=== PATIENT | male | born 1970 | race Caucasian/White ===

== ENCOUNTER 2024-12-25 15:54 | Emergency (ER) | payer OTHER, SELFPAY ==
--- NOTE | ~2024-12-25 | XR_ITS ---
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 COMPARISON: No comparisons available. Findings: Nondisplaced radial head fracture with intra-articular extension. No significant degenerative changes. Soft tissues unremarkable. Impression: Radial head fracture Reviewed, dictated and finalized at location . RNMENT RELATIONS ANALYST Impression: Radial head fracture
[2024-12-25 16:03] VITALS: BP 136/82; PULSE 74; RESP 18; TEMP 36.6; O2SAT 98
--- NOTE | 2024-12-25 16:17 | ED.UPPEXIN ---
HPI - Extremity Injury (Upper) General Chief Complaint: Extremity Injury, Upper Stated Complaint: fall Time Seen by Provider: 12/25/24 16:11 Source: patient and RN notes reviewed Mode of arrival: ambulatory Limitations: no limitations History of Present Illness HPI narrative: 54-year-old male patient presents today complaining of a left elbow injury. Approximately 2 hours prior to arrival, patient fell off a ladder approximately 6 ft height on his left elbow. He denies any additional injury or pain to include shoulder pain, head injury, neck injury, lower extremity injuries chest injury, loss of consciousness. His elbow hit a patio paper as he fell. He has some intermittent tingling in the 5th finger. At rest, he rates his pain 2/10, which increases to 8/10 with movement. No OTC treatment prior to arrival. Patient is not up-to-date on his tetanus vaccine. He is right-hand dominant. Related Data Home Medications ?Medication ?Instructions ?Recorded ?Confirmed ?Last Taken ?Type ascorbate calcium (vitamin C) 500 500 mg PO DAILY 05/24/24 05/24/24 Unknown History mg tablet cholecalciferol (vitamin D3) 10 10 mcg PO DAILY 05/24/24 05/24/24 Unknown History mcg (400 unit) capsule multivitamin 1 tablet PO DAILY 05/24/24 05/24/24 Unknown History Allergies Allergy/AdvReac Type Severity Reaction Status Date / Time naproxen (From Aleve) Allergy Unknown Hives Verified 12/25/24 16:13 fluticasone (From Flonase) AdvReac Mild Hyperactive Verified 12/25/24 16:13 PMFSH Past Medical History Medical History Hyperglycemia Vitamin D deficiency Dyslipidemia Hypothyroidism Surgical History Surgical History No pertinent past surgical history Social History Social History Social History: 05/17/24 very confident with medical forms Smoking packs per day: 0.75 Smoking cigarettes per day: 15.0 Years smoked: 20 Smoking pack-years: 15.00 Alcohol intake: never Substance use: never Do You Feel Safe in your Home?: Yes Lack of Transportation: No Lack of Food: Never True Current Housing: I Have Housing Concerned About Future Housing: No Difficulty Paying Gas/Electric Bills: No Difficulty Paying for Meds: No Currently Unemployed: No Education: Trade/Vocational Certificate Difficulty w/ Childcare or Family Care: No Living arrangements: with family Occupation/Education: occupation Gender identity (if verbalized by the patient): Male Sexual Orientation (if Verbalized by the Patient): Straight or Heterosexual Comments At time of signature, I have reviewed and agree with nursing past medical, surgical, social and family history unless otherwise noted. Please see nursing chart for further information. There is no relevant family history pertinent to the presenting complaint Exam Narrative: GENERAL: Well-appearing, well-nourished, and in no acute distress. HEAD: Normocephalic, atraumatic. EYES: EOMI. No redness or drainage. Conjunctivae normal. ENT: Mucous membranes pink and moist. NECK: Normal AROM. CHEST: No respiratory distress. Clear to auscultation. HEART: Regular rate and rhythm. No murmur appreciated. Normal peripheral pulses. ABDOMEN: Soft, nontender, nondistended, normal active bowel sounds. MUSCULOSKELETAL: No bony tenderness. EXTREMITIES: Left arm: Shoulder nontender with full AROM without pain. Elbow: Moderately swollen olecranon bursa with small superficial abrasion. Tenderness of the medial epicondyle and antecubital fossa. Pain with active flexion, pronation and supination. Pain extends a bit distally to the forearm. No obvious edema or ecchymosis of the forearm. Wrist NTTP without edema or ecchymosis. Flexion and extension of the wrist elicits no pain. Distal sensation intact in all 5 fingers. Capillary refill normal. Radial pulse normal. SKIN: Warm, dry, no rash. Capillary refill normal. Normal skin turgor. NEURO: No focal deficits. Alert and oriented x3. Gait steady. PSYCH: Normal affect. No signs of depression or anxiety. Course Course Level of Care: Express Care Visit Vital Signs Vital signs: Vital Signs Temperature 97.9 F 12/25/24 16:03 Pulse Rate 74 12/25/24 16:03 Respiratory Rate 18 12/25/24 16:03 Blood Pressure 136/82 12/25/24 16:03 Pulse Oximetry 98 12/25/24 16:03 Oxygen Delivery Room Air 12/25/24 16:03 Temperature 97.9 F 12/25/24 16:03 Pulse Rate 74 12/25/24 16:03 Respiratory Rate 18 12/25/24 16:03 Blood Pressure 136/82 12/25/24 16:03 Pulse Oximetry 98 12/25/24 16:03 Oxygen Delivery Room Air 12/25/24 16:03 Reviewed Procedures Orthopedic Splinting/Casting Injury #1: Splinting/Casting Date: 12/25/24 Splinting/Casting Time: 17:05 Side: left OCL: long arm Pre-Procedure Neuro Vascular Exam: normal Post-Procedure Neuro Vascular Exam: normal Other Orthopedic Equipment: other (Sling) Additional Comments: Placed by tech and RN. MDM - Extremity Injury (Upper) MDM Narrative Medical decision making narrative: 54-year-old male patient presents today complaining of a left elbow injury. Approximately 2 hours prior to arrival, patient fell off a ladder approximately 6 ft height on his left elbow. He denies any additional injury or pain to include shoulder pain, head injury, neck injury, lower extremity injuries chest injury, loss of consciousness. His elbow hit a patio paper as he fell. He has some intermittent tingling in the 5th finger. At rest, he rates his pain 2/10, which increases to 8/10 with movement. No OTC treatment prior to arrival. Patient is not up-to-date on his tetanus vaccine. He is right-hand dominant. Upon exam, Left arm: Shoulder nontender with full AROM without pain. Elbow: Moderately swollen olecranon bursa with small superficial abrasion. Tenderness of the medial epicondyle and antecubital fossa. Pain with active flexion, pronation and supination. Pain extends a bit distally to the forearm. No obvious edema or ecchymosis of the forearm. Wrist NTTP without edema or ecchymosis. Flexion and extension of the wrist elicits no pain. Distal sensation intact in all 5 fingers. Capillary refill normal. Radial pulse normal. X-ray shows nondisplaced radial head fracture. Long-arm OCL applied with sling. Patient declines prescription for pain medication. Due to patient's abrasion along the olecranon process and fact that he will be covered in a long-arm posterior OCL with an inability to evaluate for infectious bursitis, will place him on prophylactic Augmentin. Patient will follow-up with orthopedics. Vital signs stable. Patient agrees with plan. Anticipatory guidance given. Differential Diagnosis Differential diagnosis: Likely other (elbow fracture, contusion, strain) Imaging Data Radiologist's impression: ITS Impressions Elbow X-Ray 12/25/24 16:47 Impression: Radial head fracture Critical Care Time Critical Care Time Critical Care Time: No Discharge Plan Discharge Clinical Impression: Closed fracture of head of left radius, Fall from ladder Patient Disposition: Home Condition: Stable Instructions: Elbow Fracture (DC) Additional Instructions: Your x-ray shows fracture of your elbow. You have been placed in a temporary splint. Please keep this dry and intact until follow-up with orthopedics. Elevate and ice the elbow. Take Tylenol for pain. Call to schedule a follow-up visit on Friday. Please take the Augmentin as prescribed until gone to help prevent infection at the tip of your elbow. Your tetanus shot has been updated today. Patient Language: [place] Prescriptions: New amoxicillin-pot clavulanate 875-125 mg tablet 1 tablet PO Q12H 5 Days Qty: 10 0RF No Action cholecalciferol (vitamin D3) 10 mcg (400 unit) capsule 10 mcg PO DAILY ascorbate calcium (vitamin C) 500 mg tablet 500 mg PO DAILY multivitamin Tablet 1 tablet PO DAILY fenofibric acid (choline) 135 mg capsule,delayed release(DR/EC) 135 mg PO DAILY Qty: 90 3RF levothyroxine [Unithroid] 112 mcg tablet 112 mcg PO DAILY Qty: 90 0RF Follow-up/Referrals: Renata Jensen PA-C [Primary Care Provider, Family Practice] Jewel Soto MD [Physician, Orthopedics] Stand Alone Forms: Work/School Release IP Time of Disposition: 17:05
[2024-12-25] MEDS: TETANUS,DIPHTHERIA,AC PERTUSSIS ADULT (0.5 ML) BOOSTRIX IM (16:37)
== END 2024-12-25 17:20 | disposition home or self-care (01) ==
PROVIDERS: Emergency Provider Nurse Practitioner; PCP Physician Assistant Medical
DX: S52.125A Nondisplaced fracture of head of left radius, initial encounter for closed fracture (principal); W11.XXXA Fall on and from ladder, initial encounter; Z23 Encounter for immunization; F17.210 Nicotine dependence, cigarettes, uncomplicated; E03.9 Hypothyroidism, unspecified; E78.5 Hyperlipidemia, unspecified; E55.9 Vitamin D deficiency, unspecified
CPT/HCPCS: 29105; 73080; 90471; 90715; 99214; A4565; G0463

== ENCOUNTER 2025-01-10 10:17 | Outpatient (CLI) | payer OTHER, SELFPAY ==
--- NOTE | ~2025-01-10 | CT_ITS ---
EXAMINATION: CT elbow LT wo con DATE: 01/10/2025 10:44 INDICATION: Left elbow pain post fall with fracture 2 weeks prior TECHNIQUE: High resolution computed tomography (CT) of the left elbow was performed without intravenous contrast. Additional sagittal and coronal reconstructions were performed. Automated exposure control and iterative reconstruction technique were employed. The dose-length product was 85.38 mGy-cm. COMPARISON: Left elbow radiographs dated 12/25/2024 FINDINGS: Comminuted intra-articular fracture which involves approximately 25% of the surface area of the articular surface of the radial head. A fragment comprising approximately 10% of the articular surface area remains minimally displaced with approximately 2 mm depression and 2-3 mm maximal fracture gap along the articular surface. A second slightly larger fragment comprising approximately 15% of the surface area is displaced into the anterior recess of the joint space along the coronoid fossa of the distal humerus. There is an associated small elbow joint effusion. No other fractures identified. There is minimal dorsal subluxation of the radial head with respect to the capitellum with mild relative widening of the dorsal aspect of the joint space.. Alignment and joint spaces are otherwise unremarkable. Mild soft tissue swelling subcutaneous edema posterior to the elbow. IMPRESSION: 1. Mildly comminuted intra-articular fracture of the left radial head with displacement of one of the 2 fracture fragments of the articular surface into the anterior recess of the joint space. Reviewed, dictated and finalized at location A. THESIOLOGIST PHYSICIAN IMPRESSION: 1. Mildly comminuted intra-articular fracture of the left radial head with disp lacement of one of the 2 fracture fragments of the articular surface into the a nterior recess of the joint space.
== END 2025-01-10 10:18 | disposition home or self-care (01) ==
LOC: MICIMG 10:20
PROVIDERS: PCP Physician Assistant Medical; Visit Provider Orthopaedic Surgery
DX: S52.122A Displaced fracture of head of left radius, initial encounter for closed fracture (principal); X58.XXXA Exposure to other specified factors, initial encounter
CPT/HCPCS: 73200